=== PATIENT | male | born 1995 | race Two or more races ===

== ENCOUNTER 2019-10-03 15:30 | Emergency (ER) | payer OTHER ==
[~2019-10-03] VITALS: Ht 167.6 cm; Wt 68.0 kg
--- NOTE | 2019-10-03 15:34 | NUR ---
"nausea, vomiting, shakes. admits to etoh. seen at [facility] earlier for same reason. took ativan 1mg no relief. denies si/hi" PT AAOX4, -SOB, NAD NOTED, VSS, PENDING MD HATHAWAY
[2019-10-03] MEDS ORDERED: IV NS 0.9% 1,000 ML BAG IV ONE (16:00)
[2019-10-03] MEDS ORDERED: LORAZEPAM INJ 2 MG/ML VIAL IV ONE (16:00)
[2019-10-03] MEDS ORDERED: ONDANSETRON HCL/PF 4 MG/2 ML VIAL IVP ONE (16:00)
[2019-10-03] MEDS ORDERED: LORAZEPAM INJ 2 MG/ML VIAL ONE (16:02)
[2019-10-03] MEDS ORDERED: ONDANSETRON HCL/PF 4 MG/2 ML VIAL ONE (16:02)
[2019-10-03 16:11] LABS: BASOPHILS # (AUTO) 0.1 /CMM (0.0-0.2); EOSINOPHILS % (AUTO) 0.3 % (0.0-6.0); HEMATOCRIT 37 % (39-51); HEMOGLOBIN 12.3 g/dL (13.5-17.5); LYMPHOCYTES # (AUTO) 0.7 /CMM (0.8-4.8); LYMPHOCYTES % (AUTO) 10.3 % (20.0-44.0); MEAN CORPUSCULAR HGB CONC 33 g/dl (31.0-36.0); MEAN CORPUSCULAR VOLUME 74 fL (80-96); MONOCYTES # (AUTO) 0.5 /CMM (0.1-1.30); MONOCYTES % (AUTO) 6.7 % (2.0-12.0); NEUTROPHILS # (AUTO) 5.9 /CMM (1.8-8.9); NEUTROPHILS % (AUTO) 81.7 % (43.0-81.0); PLATELET COUNT (AUTO) 259 /CMM (150-450); RED BLOOD CELL COUNT(AUTO) 5.03 MIL/uL (4.5-6.0); WHITE BLOOD COUNT (AUTO) 7.2 K/uL (4.3-11.0)
[2019-10-03 16:25] LABS: ALBUMIN 4.7 g/dL (3.4-5.0); BILIRUBIN,DIRECT 0.2 mg/dL (0.0-0.2); CALCIUM, SERUM 9.7 mg/dL (8.5-10.1); CREATININE 0.9 mg/dL (0.6-1.3); POTASSIUM 3.6 mmol/L (3.5-5.1); TOTAL PROTEIN, SERUM 8.6 g/dL (6.4-8.2)
[2019-10-03 17:19] VITALS: BP 125/76
--- NOTE | 2019-10-03 18:04 | NUR ---
Patient discharged to home in stable condition. Written and verbal after care instructions given. Patient verbalizes understanding of instruction. IV removed. Catheter intact and site benign. Pressure and 4x4 applied to site. No bleeding noted.
== END 2019-10-03 18:05 | disposition home or self-care (01) ==
LOC: ER 15:36
DX: F10.239 Alcohol dependence with withdrawal, unspecified (principal); R11.2 Nausea with vomiting, unspecified; Y90.0 Blood alcohol level of less than 20 mg/100 ml
CPT/HCPCS: 36415; 80048; 80076; 80307; 85025; 96361; 96374; 96375; 99283; J2060; J2405; J7030; G0480

== ENCOUNTER 2019-11-14 21:55 | Emergency (ER) | payer OTHER ==
[~2019-11-14] VITALS: Ht 167.6 cm; Wt 63.5 kg
[2019-11-14 23:17] VITALS: BP 160/86
== END 2019-11-15 02:56 | disposition left against medical advice (07) ==
LOC: ER 21:55
DX: Z53.21 Procedure and treatment not carried out due to patient leaving prior to being seen by health care provider (principal); F10.10 Alcohol abuse, uncomplicated; R11.2 Nausea with vomiting, unspecified; R51 Headache

== ENCOUNTER 2020-01-25 08:05 | Emergency (ER) | payer OTHER ==
[~2020-01-25] VITALS: Ht 167.6 cm; Wt 73.9 kg
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
[2020-01-25] MEDS ORDERED: LORAZEPAM INJ 2 MG/ML VIAL ONE (08:22)
[2020-01-25] MEDS ORDERED: LORAZEPAM INJ 2 MG/ML VIAL IM ONE (08:30)
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
[2020-01-25] MEDS ORDERED: ONDANSETRON 4 MG TAB.RAPDIS ONE (08:50)
--- NOTE | 2020-01-25 08:59 | NUR ---
Patient discharged in [employer] [facility] #[id number] in stable condition. Written and verbal after care instructions given to patient and PD.
[2020-01-25] MEDS ORDERED: ONDANSETRON 4 MG TAB.RAPDIS SL ONE (09:00)
[2020-01-25 09:01] VITALS: BP 157/98
[2020-01-25] MEDS ORDERED: ONDA-97 PO (18:49)
[2020-01-25] MEDS ORDERED: LORA-258 PO (18:49)
== END 2020-01-25 09:01 ==
LOC: ER 08:06
DX: Z04.89 Encounter for examination and observation for other specified reasons (principal); F10.10 Alcohol abuse, uncomplicated; R45.1 Restlessness and agitation
CPT/HCPCS: 99284; 87804; 96372; J2060; Q0162

== ENCOUNTER 2020-01-25 16:56 | Emergency (ER) | payer OTHER ==
[~2020-01-25] VITALS: Ht 167.6 cm; Wt 72.6 kg
--- NOTE | 2020-01-25 17:10 | NUR ---
CHEST PAIN, NAUSEA AND VOMITING, "IM HAVING ALCOHOL WIDRAWAL." PATIENT A/OX4, BREATHING EVEN AND UNLABORED, NO SOB NOTED, NEEDS ATTENDED, ATTACHED TO THE ASSESSMENT COUNSELOR.
[2020-01-25] MEDS ORDERED: IV NS 0.9% 1,000 ML BAG IV ONE ×2 (17:30→19:30)
[2020-01-25] MEDS ORDERED: LORAZEPAM INJ 2 MG/ML VIAL IM/IV ONE (17:30)
[2020-01-25] MEDS ORDERED: LORAZEPAM INJ 2 MG/ML VIAL ONE ×2 (17:35→18:50)
[2020-01-25 17:54] LABS: BASOPHILS # (AUTO) 0.1 /CMM (0.0-0.2); BASOPHILS % (AUTO) 1.2 % (0.0-2.0); HEMATOCRIT 40 % (39-51); HEMOGLOBIN 13.3 g/dL (13.5-17.5); LYMPHOCYTES # (AUTO) 0.3 /CMM (0.8-4.8); LYMPHOCYTES % (AUTO) 4.7 % (20.0-44.0); MEAN CORPUSCULAR HGB CONC 33 g/dl (31.0-36.0); MEAN CORPUSCULAR VOLUME 86 fL (80-96); MONOCYTES # (AUTO) 1.1 /CMM (0.1-1.30); MONOCYTES % (AUTO) 18.5 % (2.0-12.0); NEUTROPHILS # (AUTO) 4.4 /CMM (1.8-8.9); NEUTROPHILS % (AUTO) 75.6 % (43.0-81.0); PLATELET COUNT (AUTO) 133 /CMM (150-450); WHITE BLOOD COUNT (AUTO) 5.8 K/uL (4.3-11.0)
[2020-01-25 18:06] LABS: CALCIUM, SERUM 9.5 mg/dL (8.5-10.1); CARBON DIOXIDE 28 mmol/L (21-32); CHLORIDE 89 mmol/L (98-107); GLUCOSE 94 mg/dL (74-106); POTASSIUM 3.8 mmol/L (3.5-5.1); SODIUM SERUM 130 mmol/L (136-145); UREA NITROGEN, BLOOD 9 mg/dL (7-18)
[2020-01-25 18:09] LABS: ALANINE AMINOTRANSFERASE 154 U/L (12-78); ALBUMIN 3.9 g/dL (3.4-5.0); ALCOHOL, BLOOD < 3 mg/dL (0-0); ALKALINE PHOSPHATASE 80 U/L (46-116); ASPARTATE AMINOTRANSFERASE 338 U/L (15-37); BILIRUBIN,DIRECT 0.4 mg/dL (0.0-0.2); BILIRUBIN,TOTAL 2.1 mg/dL (0.2-1.0); SALICYLATE < 2.8 mg/dL (2.8-20.0); TOTAL PROTEIN, SERUM 7.4 g/dL (6.4-8.2)
[2020-01-25] MEDS ORDERED: ONDA-97 PO (18:49)
[2020-01-25] MEDS ORDERED: LORA-258 PO (18:49)
[2020-01-25] MEDS ORDERED: LORAZEPAM INJ 2 MG/ML VIAL IV ONE ×2 (19:00→19:30)
[2020-01-25 19:06] LABS: APPEARANCE,URINE Clear (CLEAR); BILIRUBIN,URINE Negative (NEGATIVE); BLOOD, URINE Small Ery/uL (NEGATIVE); COLOR,URINE Yellow (YELLOW); KETONES,URINE 40 (NEGATIVE); LEUKOCYTE ESTERASE ,URINE Negative (NEGATIVE); NITRITE, URINE Negative (NEGATIVE); PH,URINE 7.5 (5.0-8.0); PROTEIN,URINE Negative (NEGATIVE); UGLUCOSE Negative (NEGATIVE)
[2020-01-25 19:09] LABS: BACTERIA,URINE None seen /HPF (None Seen); SQUAMOUS EPITHELIAL CELL,UR Few /HPF (None Seen); WBC,URINE 0-2 /HPF (0-3)
--- NOTE | 2020-01-25 19:21 | NUR ---
PATIENT RESTING, NO DISTRESS NOTED. ENDORSED TO ARIELLE GONZALEZ FOR NATALIE.
[2020-01-25] MEDS ORDERED: Magnesium 1 GM/2 ML VIAL IV ONE (19:30)
[2020-01-25 19:34] LABS: LYMPHOCYTES % (MANUAL) 2 % (16-48); MONOCYTES % (MANUAL) 11 % (0-11.0); NEUTROPHILS % (MANUAL) 87 (42-76)
--- NOTE | 2020-01-25 19:53 | NUR ---
SPOKE W/ MELINDA, LIBRARY TECHNICAL ASSISTANT FOR [facility]. CLINICALS REPORTED. VERBAL AUTH RECEIVED, # [id number]
--- NOTE | 2020-01-25 20:30 | NUR ---
CALLED [employer]. INSPECTOR SET UP AND LAY OUT WAS PAGED.
[2020-01-25] MEDS ORDERED: Magnesium 1GM/D5W 100ML PREMIX 100 ML IV ONE (21:07)
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
--- NOTE | 2020-01-25 23:40 | NUR ---
Patient discharged to home in stable condition. Written and verbal after care instructions given. Patient verbalizes understanding of instruction.IV removed. Catheter intact and site benign. Pressure and 4x4 applied to site. No bleeding noted.Pt ambulatory with a steady gait
[2020-01-25 23:41] VITALS: BP 151/92
== END 2020-01-25 23:41 | disposition home or self-care (01) ==
LOC: ER 17:01
DX: F10.239 Alcohol dependence with withdrawal, unspecified (principal); K70.10 Alcoholic hepatitis without ascites; Y90.0 Blood alcohol level of less than 20 mg/100 ml; R00.0 Tachycardia, unspecified; E83.42 Hypomagnesemia; R07.9 Chest pain, unspecified
CPT/HCPCS: 36415; 71045; 76705; 80048; 80076; 80305; 80307; 80329; 81001; 83735; 84484; 85025; 93005; 96361; 96365; 96375; 96376; 99285; G0480; J2060 ×2; J3475; J7030 ×2; 81000-TC

== ENCOUNTER 2020-01-29 07:30 | Emergency (ER) | payer OTHER ==
[~2020-01-29] VITALS: Ht 165.1 cm; Wt 72.6 kg
[~2020-01-29 07:30] MED LIST: LORA-258 PO; ONDA-97 PO
--- NOTE | 2020-01-29 07:35 | NUR ---
called in waiting room. no response
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
[2020-01-29] MEDS ORDERED: LORAZEPAM 1 MG TABLET ONE (07:58)
[2020-01-29] MEDS ORDERED: THIAMINE HCL 100 MG TABLET ONE (07:59)
[2020-01-29] MEDS ORDERED: THIAMINE HCL 100 MG TABLET PO ONE (08:00)
[2020-01-29] MEDS ORDERED: LORAZEPAM 1 MG TABLET PO ONE (08:00)
--- NOTE | 2020-01-29 09:26 | NUR ---
Patient discharged to home in stable condition. Written and verbal after care instructions given. Patient verbalizes understanding of instruction.
[2020-01-29 09:27] VITALS: BP 140/87
== END 2020-01-29 09:27 | disposition home or self-care (01) ==
LOC: ER 07:30
DX: F10.239 Alcohol dependence with withdrawal, unspecified (principal); R25.1 Tremor, unspecified

== ENCOUNTER 2020-02-07 13:08 | Emergency (ER) | payer OTHER ==
[~2020-02-07] VITALS: Ht 170.2 cm; Wt 77.1 kg
[2020-02-07 13:15] VITALS: BP 130/77
[2020-02-07] MEDS ORDERED: LORAZEPAM INJ 2 MG/ML VIAL IV ONE (13:30)
[2020-02-07] MEDS ORDERED: LORAZEPAM 1 MG TABLET ONE (13:48)
[2020-02-07] MEDS ORDERED: LORAZEPAM 1 MG TABLET PO ONE (14:00)
== END 2020-02-07 13:55 | disposition home or self-care (01) ==
LOC: ER 13:09
DX: F10.129 Alcohol abuse with intoxication, unspecified (principal); R00.2 Palpitations; F41.9 Anxiety disorder, unspecified; Y90.9 Presence of alcohol in blood, level not specified; Z59.0 Homelessness; Z79.899 Other long term (current) drug therapy

== ENCOUNTER 2020-02-14 17:08 | Emergency (ER) | payer OTHER ==
[~2020-02-14] VITALS: Ht 170.2 cm; Wt 71.2 kg
[2020-02-14 17:25] VITALS: BP 125/74
[2020-02-14] MEDS ORDERED: LORAZEPAM 0.5 MG TABLET ONE (17:34)
[2020-02-14] MEDS: LORAZEPAM 0.5 MG TABLET PO ONE (17:40)
== END 2020-02-14 17:40 | disposition home or self-care (01) ==
LOC: ER 17:15
DX: F13.10 Sedative, hypnotic or anxiolytic abuse, uncomplicated (principal); Z59.0 Homelessness; Z79.899 Other long term (current) drug therapy

== ENCOUNTER 2020-06-12 08:36 | Emergency (ER) | payer OTHER ==
[~2020-06-12] VITALS: Ht 170.2 cm; Wt 86.2 kg
--- NOTE | 2020-06-12 09:18 | NUR ---
DR HERCULES AT BEDSIDE, PT IS C/O ANXIETY. STABLE VITALS.
[2020-06-12] MEDS ORDERED: CHLORDIAZEPOXIDE HCL 25 MG CAPSULE PO ONE (09:30)
[2020-06-12] MEDS ORDERED: CHLORDIAZEPOXIDE HCL 25 MG CAPSULE ONE (09:40)
--- NOTE | 2020-06-12 09:43 | NUR ---
PT. VERBALIZED UNDERSTANDING OF AFTERCARE INSTRUCTIONS.Patient discharged to home in stable condition. Written and verbal after care instructions given. Patient verbalizes understanding of instruction.
[2020-06-12 09:50] VITALS: BP 163/88
== END 2020-06-12 09:50 | disposition home or self-care (01) ==
LOC: ER 08:39
DX: F10.239 Alcohol dependence with withdrawal, unspecified (principal); Z59.0 Homelessness; Z79.899 Other long term (current) drug therapy; Y90.9 Presence of alcohol in blood, level not specified

== ENCOUNTER 2024-04-23 15:03 | Emergency (ER) | payer OTHER ==
[~2024-04-23] VITALS: Ht 167.6 cm; Wt 83.9 kg
[2024-04-23] MEDS ORDERED: LORAZEPAM 1 MG TABLET ONE (17:30)
[2024-04-23] MEDS: LORAZEPAM 1 MG TABLET PO ONE (17:30)
[2024-04-23 17:35] VITALS: BP 135/105; TEMP 98.1; O2SAT 98
== END 2024-04-23 17:35 | disposition home or self-care (01) ==
LOC: ER 16:10
DX: F10.10 Alcohol abuse, uncomplicated (principal); F41.9 Anxiety disorder, unspecified; Z59.00 Homelessness unspecified; Y90.9 Presence of alcohol in blood, level not specified

== ENCOUNTER 2024-07-07 15:00 | Emergency (ER) | payer OTHER ==
[~2024-07-07] VITALS: Ht 162.6 cm; Wt 86.2 kg
--- NOTE | 2024-07-07 15:25 | NUR ---
"Been drinking alcohol last 7days. Feel anxious. Stomach hurts"
[2024-07-07] MEDS: IV NS 0.9% 1,000 ML BAG IV ONE (16:00)
[2024-07-07] MEDS ORDERED: LORAZEPAM INJ 2 MG/ML VIAL ONE (16:04)
[2024-07-07] MEDS ORDERED: PANTOPRAZOLE 40 MG VIAL ONE (16:04)
[2024-07-07] MEDS ORDERED: LIDOCAINE VISCOUS 2% UD 15 ML UDC ONE (16:04)
[2024-07-07] MEDS ORDERED: ONDANSETRON HCL/PF 4 MG/2 ML VIAL ONE (16:04)
[2024-07-07 16:06] LABS: BASOPHILS # (AUTO) 0.1 K/uL (0.0-0.2); BASOPHILS % (AUTO) 1.2 % (0.0-2.0); EOSINOPHILS % (AUTO) 0.6 % (0.0-6.0); HEMATOCRIT 48 % (39-51); HEMOGLOBIN 16.4 g/dL (13.5-17.5); LYMPHOCYTES # (AUTO) 1.1 K/uL (0.8-4.8); LYMPHOCYTES % (AUTO) 26.6 % (20.0-44.0); MEAN CORPUSCULAR HEMOGLOBIN 31 PG (26.0-33.0); MEAN CORPUSCULAR HGB CONC 34 g/dl (31.0-36.0); MEAN CORPUSCULAR VOLUME 90 fL (80-96); MONOCYTES # (AUTO) 0.3 K/uL (0.1-1.30); MONOCYTES % (AUTO) 6.1 % (2.0-12.0); NEUTROPHILS # (AUTO) 2.8 K/uL (1.8-8.9); NEUTROPHILS % (AUTO) 65.5 % (43.0-81.0); PLATELET COUNT (AUTO) 321 K/uL (150-450); RED BLOOD CELL COUNT(AUTO) 5.35 MIL/uL (4.5-6.0); RED CELL DISTRIBUTION WIDTH 13.5 % (11.5-15.0); WHITE BLOOD COUNT (AUTO) 4.3 K/uL (4.3-11.0)
[2024-07-07] MEDS: ONDANSETRON HCL/PF 4 MG/2 ML VIAL IVP ONE (16:10)
[2024-07-07] MEDS: PANTOPRAZOLE 40 MG VIAL IV ONE (16:15)
[2024-07-07 16:19] LABS: POTASSIUM 3.5 mmol/L (3.5-5.1)
[2024-07-07 16:20] LABS: CALCIUM, SERUM 8.8 mg/dL (8.5-10.1); CREATININE 0.8 mg/dL (0.6-1.3)
[2024-07-07] MEDS: LORAZEPAM INJ 2 MG/ML VIAL IV ONE (16:20)
[2024-07-07 16:24] LABS: BILIRUBIN,DIRECT 0.2 mg/dL (0.0-0.2); BILIRUBIN,TOTAL 0.8 mg/dL (0.2-1.0); TOTAL PROTEIN, SERUM 7.8 g/dL (6.4-8.2)
[2024-07-07] MEDS: LIDOCAINE VISCOUS 2% UD 15 ML UDC MM ONE (16:26)
[2024-07-07] MEDS ORDERED: ONDA4TAB11 PO (17:32)
[2024-07-07] MEDS ORDERED: CHLO25CA22 PO (17:32)
--- NOTE | 2024-07-07 18:10 | NUR ---
Patient discharged to home in stable condition. Written and verbal after care instructions given. Patient verbalizes understanding of instruction.
[2024-07-07 18:11] VITALS: BP 136/87; TEMP 98.5; O2SAT 98
== END 2024-07-07 18:12 | disposition home or self-care (01) ==
LOC: ER 15:00
DX: F10.139 Alcohol abuse with withdrawal, unspecified (principal); F41.9 Anxiety disorder, unspecified; R10.13 Epigastric pain; R11.2 Nausea with vomiting, unspecified; Z59.00 Homelessness unspecified; Y90.9 Presence of alcohol in blood, level not specified
CPT/HCPCS: 99284; 96374; 96375; 96361; 85025; 80048; 83690; 80076; 36415; 98960; J2060; J2405; J7030; J2470